=== PATIENT | male | born 1985 | race Two or more races ===

== ENCOUNTER 2024-07-14 09:48 | Emergency (ER) | payer BC, SELFPAY ==
[2024-07-14 10:14] VITALS: BP 149/95; PULSE 72; RESP 18; TEMP 36.9; O2SAT 98; BMI 32.4
--- NOTE | 2024-07-14 10:16 | EDNOTE_ITS ---
Lower Extremity Injury RME/HPI General Chief Complaint: Ankle/Foot Injury Stated Complaint: GOUT LEFT FOOT Time Seen by Provider: 07/14/24 09:52 Arrival date/time: 07/14/24 09:48 39-year-old male presents emerged department complaints of gout left great toe Limitations: no limitations Related Data Previous Rx's ?Medication ?Instructions ?Recorded colchicine 0.6 mg tablet 0.6 mg PO QDAY 1 day #1 tab 07/14/24 indomethacin 50 mg capsule 50 mg PO TID 5 days #15 caps 07/14/24 Allergies Allergy/AdvReac Type Severity Reaction Status Date / Time No Known Allergies Allergy Verified 07/14/24 09:49 Review of Systems Review of Systems Systems Reviewed: All systems reviewed, normal except as documented Constitutional Constitutional: Reports system reviewed and no additional complaints, except as documented, Denies fever(s) and Denies headache(s) Eyes Eyes: Reports system reviewed and no additional complaints, except as documented and Denies blurry vision ENT Ears, Nose, Mouth, and Throat: Reports system reviewed and no additional complaints, except as documented, Denies headache(s), Denies nasal congestion and Denies nasal discharge Cardiovascular Cardiovascular: Reports system reviewed and no additional complaints, except as documented, Denies chest pain and Denies dyspnea Respiratory Respiratory: Reports system reviewed and no additional complaints, except as documented, Denies chest congestion, Denies cough and Denies dyspnea Gastrointestinal Gastrointestinal: Reports system reviewed and no additional complaints, except as documented and Denies abdominal pain Musculoskeletal Musculoskeletal: Reports system reviewed and no additional complaints, except as documented, Reports abnormal gait, Reports arthralgias, Denies deformity, Denies numbness, Reports stiffness and Denies tingling Integumentary/Breasts Skin/Breast: Reports system reviewed and no additional complaints, except as documented and Denies rash Neurologic Neurologic: Reports system reviewed and no additional complaints, except as documented, Reports as per HPI, Reports abnormal gait, Denies headache(s), Denies numbness and Denies tingling Past Medical History Past Medical History NEUROLOGIC: Negative Neurological Disorders CARDIAC: Negative Cardiac Disorders ED Exam General Limitations: Present no limitations General appearance: Present alert and in no apparent distress Head Head exam: Present atraumatic Eye Eye exam: Present normal appearance, PERRL and EOMI ENT ENT exam: Present normal exam, normal oropharynx and mucous membranes moist Neck Neck exam: Present normal inspection, full ROM and trachea midline Chest Chest inspection: Present normal inspection and symmetric chest wall rise Respiratory Respiratory exam: Present normal lung sounds bilaterally Cardiovascular Cardiovascular exam: Present regular rate, normal rhythm and normal heart sounds Abdominal Exam Abdominal exam: Present soft and normal bowel sounds Extremities Exam Extremities exam: Present full ROM, tenderness, normal capillary refill and joint swelling; Absent pedal edema or calf tenderness Back Exam Back exam: Present normal inspection and full ROM Neurological Exam Neurological exam: Present alert, oriented X3, CN II-XII intact, normal gait and reflexes normal; Absent motor sensory deficit Psychiatric Psychiatric exam: Present normal affect and normal mood Skin Skin exam: Present warm, dry, intact and normal color Course Quality Measures none Orders Category Date Time Status Colchicine Med 07/14/24 10:14 Discontinued 1.2 mg PO X1 ONE Dexamethasone Inj [Decadron Inj] Med 07/14/24 10:14 Discontinued 10 mg PO X1 ONE Ketorolac Inj [Toradol Inj] Med 07/14/24 10:14 Discontinued 30 mg IM X1 ONE Vital Signs Vital signs: Vital Signs Temperature 98.5 F 07/14/24 10:14 Pulse Rate 72 07/14/24 10:14 Respiratory Rate 18 07/14/24 10:14 Blood Pressure 149/95 H 07/14/24 10:14 Pulse Oximetry (%) 98 07/14/24 10:14 Oxygen Delivery Method Room Air 07/14/24 10:14 O2 saturation 98% room air within normal limits Extremity Injury, Lower MDM Narrative MDM Narrative:: 39-year-old male presents emergency department complaints of gout left great toe On exam patient has tenderness and swelling left great toe consistent with gout Patient treated with medication here discharged home with meds Patient discharged home in no distress to follow-up with primary care doctor in the next 24 to 48 hours and for any worsening symptoms to return to the ER immediately Patient data External records reviewed:: [facility] previous records Clinical information provided by:: patient Social determinants that could affect healthcare access:: none Patient has the following chronic illnesses:: Gout How is presenting disease/condition affected by chronic disease/condition?: no chronic disease Evaluation data The following diagnostics were reviewed and interpreted by me:: radiology exam(s) Lab and/or radiology exams considered but not ordered:: Radiology obtained Interpretation Summary: Reviewed by me Medications / Prescriptions Medications or Prescriptions considered but not ordered:: Given Medication administrations:: Medication Administration History Discontinued Medications Colchicine (Colchicine 0.6 Mg Tablet) 1.2 mg PO X1 ONE Stop: 07/14/24 10:15 Last Admin: 07/14/24 10:45 Dose: 1.2 mg Documented By: TM Dexamethasone Sodium Phosphate (Dexamethasone Sod Phos Inj 10 Mg/Ml Vial) 10 mg PO X1 ONE Stop: 07/14/24 10:15 Last Admin: 07/14/24 10:45 Dose: 10 mg Documented By: TM Ketorolac Tromethamine (Ketorolac Inj 60 Mg/2 Ml Vial) 30 mg IM X1 ONE Stop: 07/14/24 10:15 Last Admin: 07/14/24 10:45 Dose: 30 mg Documented By: TM Given Consultations Consultation(s) initiated? (list below): No Diagnosis Extremity Injury, Lower Differential Diagnosis: other (Toe sprain, toe fracture, gout) Most likely diagnosis given after review of the tests above:: Gout Admission Indicated Admission indicated?: not indicated Admission Request Was there a request for admission?: No Disposition Plan Disposition Plan: Discharge Discharge Attestation Discharge Attestation: The patient and all family members were given an opportunity to ask questions and understood the discharge instructions. Discharge instructions specifically effects, indications for sooner follow up or return to the emergency department, and the expected course of current diagnosis. Patient condition: Stable Discharge Plan Plan Patient Disposition: HOME (Self Care) Disposition Comment: Stable Prescriptions/Referrals Prescriptions/Med Rec: New indomethacin 50 mg capsule 50 mg PO TID 5 Days Qty: 15 0RF Rx Instructions: administer with food or milk colchicine 0.6 mg tablet 0.6 mg PO QDAY 1 Days Qty: 1 0RF Problem List Clinical Impression: Acute gout of left foot Patient/Caregiver Discharge Instructions Education Materials: ED Gout Additional Instructions: Please follow up with your primary care doctor in the next 24-48hrs for any worsening symptoms return here immediately Print Language: Kyrgyz Stand Alone Forms: Mary Ellen Award Info., Patient Portal Info Letter PA/DENTAL HYGI[employer] INSTRUCTOR Supervising Physician MINERVA/ROSHAN Supervising Physician: Dr. Castañeda
[2024-07-14] MEDS: DEXAMETHASONE SOD PHOS INJ 10 MG/ML VIAL PO (10:45)
[2024-07-14] MEDS: KETOROLAC INJ 60 MG/2 ML VIAL 30 MG IM (10:45)
[2024-07-14] MEDS: COLCHICINE 0.6 MG TABLET 1.2 MG PO (10:45)
== END 2024-07-14 10:48 | disposition home or self-care (01) ==
LOC: SERX 10:35
PROVIDERS: Emergency Provider Emergency Medicine
DX: M10.9 Gout, unspecified (principal)
CPT/HCPCS: 96372; 99283; J1100; J1885; A9270